=== PATIENT | female | born 1960 ===

== ENCOUNTER 2016-07-12 09:45 | Emergency (ER) | payer MEDICARE, MEDICAID ==
[2016-07-12 09:46] VITALS: BMI 30.2
[2016-07-12 10:46] VITALS: BP 109/78; PULSE 89; RESP 16; TEMP 98; O2SAT 99
--- NOTE | 2016-07-12 11:04 | RAD ---
HISTORY: cough, history of hiv COMPARISON: Images from chest x-ray performed 06/07/11 TECHNIQUE: Chest PA and lateral FINDINGS: Examination limited by habitus. LUNGS: Mild subsegmental bibasilar atelectasis. Please note that chest x-ray has limited sensitivity for the detection of pulmonary masses. PLEURA: No significant pleural effusion identified. No definite pneumothorax . CARDIOVASCULAR: The cardiomediastinal silhouette appears within normal limits of size. OSSEOUS STRUCTURES: Degenerative changes of the spine. VISUALIZED UPPER ABDOMEN: Unremarkable. OTHER FINDINGS: None. IMPRESSION: Mild bibasilar subsegmental atelectasis.
[2016-07-12 11:08] LABS: BASO % 0.4 % (0.0-2.0); EOS # 0.2 K/uL (0.0-0.7); EOS % 2.5 % (0.0-4.0); HEMATOCRIT 37.8 % (34.0-47.0); LYMPH # 2.1 K/uL (1.0-4.3); LYMPH % 21.9 % (20.0-40.0); MEAN CELL VOLUME 96.7 fl (81.0-99.0); MEAN CORPUSCULAR HEMOGLOBIN 32.2 pg (27.0-31.0); MEAN CORPUSCULAR HGB CONC 33.3 g/dL (33.0-37.0); MONO # 0.7 K/uL (0.0-0.8); MONO % 7.3 % (0.0-10.0); NEUT # 6.4 K/uL (1.8-7.0); NEUT % 67.9 % (50.0-75.0); RED CELL DISTRIBUTION WIDTH 14.4 % (11.5-14.5); WHITE BLOOD COUNT 9.4 K/uL (4.8-10.8)
[2016-07-12 11:20] LABS: ALB/GLOB RATIO 0.9 (1.0-2.1); ALKALINE PHOSPHATASE 124 U/L (38-126); ALT/SGPT < 6 U/L (9-52); AST/SGOT 62 U/L (14-36); BILIRUBIN,TOTAL 1.7 mg/dl (0.2-1.3); BLOOD UREA NITROGEN 10 mg/dl (7-17); CARBON DIOXIDE 25 mmol/L (22-30); CHLORIDE 103 mmol/L (98-107); GFR AFRICAN-AMERICAN > 60; GLUCOSE,RANDOM 99 mg/dL (65-105); SODIUM 141 mmol/l (132-148); TOTAL PROTEIN 9.2 G/DL (6.3-8.2)
[2016-07-12 11:25] LABS: POTASSIUM 7.7 MMOL/L (3.6-5.0)
--- NOTE | 2016-07-12 12:37 | ED PDOC ---
HPI: CCC, URI, Sore Throat Time Seen by Provider: 07/12/16 10:16 Chief Complaint (Nursing): Cough, Cold, Congestion Chief Complaint (Provider): Cough for 2 months, chest pain with cough History Per: Patient History/Exam Limitations: no limitations Have you had recent travel within the past 21 days to any of the following countries: [place], [place], [place] or [place]?: No Onset/Duration Of Symptoms: Days Current Symptoms Are (Timing): Still Present Location Of Pain: None Associated Symptoms: Sore Throat, Cough. denies: Fever, Chills, Sputum, Sinus Drainage, Vomiting, Diarrhea Ear Symptoms: Bilateral: None Past Medical History Reviewed: Historical Data, Nursing Documentation, Vital Signs Vital Signs: Last Vital Signs Temp 98 F 07/12/16 10:05 Pulse 89 07/12/16 10:05 Resp 16 07/12/16 10:05 BP 109/78 07/12/16 10:05 Pulse Ox 99 07/12/16 10:05 - Medical History PMH: Anemia, Anxiety, Gastritis, HIV (diagnosed in 2001), Seizures (08/2009) Denies: Chronic Kidney Disease - Family History Family History: States: Unknown Family Hx - Living Arrangements Living Arrangements: With Family - Social History Current smoker - smoking cessation education provided: No - Immunization History Hx Influenza Vaccination: Yes - Home Medications Home Medications: Ambulatory Orders Medication Instructions Recorded Elvitegr/Cobicist/Emtric/Tenof 1 tab PO DAILY 07/15/15 [Stribild] Omeprazole 20 mg PO DAILY 07/15/15 Prednisolone Acetate [Pred Forte] 1 ml OP QID 07/15/15 Zolpidem [Ambien] 10 mg PO DAILY 07/15/15 Naproxen 500 mg PO BID #20 tab 01/29/16 oxyCODONE/Acetaminophen [Percocet 1 ea PO Q6 PRN #15 tab 01/29/16 5/325 mg Tab] Azithromycin [Zithromax] 250 mg PO DAILY #6 tab 07/12/16 - Allergies Allergies/Adverse Reactions: Allergies Allergy/AdvReac Type Severity Reaction Status Date / Time No Known Allergies Allergy Verified 07/12/16 09:59 Review of Systems ROS Statement: Except As Marked, All Systems Reviewed And Found Negative Cardiovascular: Positive for: Chest Pain Respiratory: Positive for: Cough Physical Exam - Reviewed Nursing Documentation Reviewed: Yes Vital Signs Reviewed: Yes - Physical Exam Appears: Positive for: Well, Non-toxic, No Acute Distress Head Exam: Positive for: ATRAUMATIC, NORMAL INSPECTION, NORMOCEPHALIC Skin: Positive for: Normal Color, Warm, DRY Eye Exam: Positive for: Normal appearance ENT: Positive for: Normal ENT Inspection Neck: Positive for: Normal, Painless ROM Cardiovascular/Chest: Positive for: Regular Rate, Rhythm Respiratory: Positive for: CNT, Normal Breath Sounds Gastrointestinal/Abdominal: Positive for: Normal Exam, Bowel Sounds, Soft Back: Positive for: Normal Inspection Extremity: Positive for: Normal ROM Neurologic/Psych: Positive for: Alert, Oriented - Laboratory Results Result Diagrams: 07/12/16 11:00 07/12/16 11:43 - ECG O2 Sat by Pulse Oximetry: 99 Disposition - Clinical Impression Clinical Impression: URI (upper respiratory infection) - Patient ED Disposition Is Patient to be Admitted: No Counseled Patient/Family Regarding: Diagnosis, Need For Followup, Rx Given - Disposition Referrals: [facility] [Outside] Disposition: Routine/Home Disposition Time: 12:35 Condition: GOOD Prescriptions: Azithromycin [Zithromax] 250 mg PO DAILY #6 tab Instructions: Upper Respiratory Infection (ED)
--- NOTE | 2016-07-12 14:54 | CARD ---
APPROVED REPORT EKG Measurement Heart [id number] <Conclusion> Normal sinus rhythm Nonspecific ST and T wave abnormality Abnormal ECG
== END 2016-07-12 12:46 | disposition home or self-care (01) ==
LOC: H.ER 09:45
DX: J06.9 Acute upper respiratory infection, unspecified (principal); Z21 Asymptomatic human immunodeficiency virus [HIV] infection status

== ENCOUNTER 2017-05-04 10:32 | Emergency (ER) | payer MEDICARE, MEDICAID ==
[2017-05-04 10:33] VITALS: BMI 29.2
--- NOTE | 2017-05-04 10:58 | ED PDOC ---
HPI: General Adult Time Seen by Provider: 05/04/17 10:54 Chief Complaint (Provider): cough History Per: Patient Additional Complaint(s): 56-year-old HIV (+) female presents to emergency department with dry cough and body aches for 2 days. Patient denies fever or chills. She denies any known sick contacts. Patient is compliant with HIV meds. PMD: Dr. Sosa Past Medical History Reviewed: Historical Data, Nursing Documentation, Vital Signs Vital Signs: Last Vital Signs Temp 98 F 05/04/17 10:52 Pulse 85 05/04/17 10:52 Resp 18 05/04/17 10:52 BP 118/78 05/04/17 10:52 Pulse Ox 99 05/04/17 11:23 - Medical History PMH: Anemia, Anxiety, Depression, Gastritis, HIV, Chronic Kidney Disease, Seizures (08/2009), TIA - Surgical History Other surgeries: tubal ligation - Family History Family History: States: No Known Family Hx - Living Arrangements Living Arrangements: Other (lives with homemaker) - Social History Current smoker - smoking cessation education provided: No Alcohol: None Drugs: Denies - Immunization History Hx Influenza Vaccination: Yes - Home Medications Home Medications: Ambulatory Orders Medication Instructions Recorded Elviteg/Cassie/Emtric/Tenofo Dis 1 tab PO DAILY 07/15/15 [Stribild] Omeprazole 20 mg PO DAILY 07/15/15 Zolpidem [Ambien] 10 mg PO DAILY 07/15/15 Ferrous Sulfate 325 mg PO DAILY 08/03/16 Albuterol HFA [Ventolin HFA 90 1 puff IH ASDIR #1 unit 05/04/17 mcg/actuation (8 g)] Azithromycin [Zithromax] 250 mg PO DAILY #6 tab 05/04/17 Benzonatate 200 mg PO TID PRN #20 capsule 05/04/17 Oseltamivir Phosphate [Tamiflu] 75 mg PO BID #9 capsule 05/04/17 - Allergies Allergies/Adverse Reactions: Allergies Allergy/AdvReac Type Severity Reaction Status Date / Time No Known Allergies Allergy Verified 08/24/16 06:53 Review of Systems ROS Statement: Except As Marked, All Systems Reviewed And Found Negative Constitutional: Positive for: Other (body aches). Negative for: Fever, Chills Cardiovascular: Negative for: Chest Pain Respiratory: Positive for: Cough Gastrointestinal: Negative for: Vomiting Physical Exam - Reviewed Nursing Documentation Reviewed: Yes Vital Signs Reviewed: Yes - Physical Exam Appears: Positive for: Well, Non-toxic, No Acute Distress Skin: Negative for: Rash ENT: Positive for: Normal ENT Inspection Cardiovascular/Chest: Positive for: Regular Rate, Rhythm Respiratory: Positive for: Normal Breath Sounds Extremity: Positive for: Normal ROM. Negative for: Pedal Edema Neurologic/Psych: Positive for: Alert, Oriented - ECG O2 Sat by Pulse Oximetry: 99 Pulse Ox Interpretation: Normal - Other Rad CXR X-Ray: Interpreted by Me, Viewed By Me X-Ray Interpretation: no acute infiltrate Nebulizer Treatments/Peak Flow - Duonebs Number of Bronchodilator Doses given?: 1 (duoneb) - Pre/Post Peak Flow Pre Treatment Peak Flow: 180 Post treatment Peak Flow: 250 - Steroid Treatment Steroid: Not Clinically Indicated - Clinical Response Clinical Response: Improved Medical Decision Making Medical Decision Makin56 year old with cough Plan: Duoneb x 1 CXR Tamiflu PO PO motrin and tylenol Prescriptions given for Tamiflu, zithromax, Tessalon Perles and Ventolin inhaler. Patient was instructed to take [id number] Tylenol and Motrin for body aches and fever and to follow up with primary doctor in 2-3 days. Disposition - Clinical Impression Clinical Impression: URI (upper respiratory infection), Flu-like symptoms - Patient ED Disposition Is Patient to be Admitted: No Counseled Patient/Family Regarding: Studies Performed, Diagnosis, Need For Followup, Rx Given - Disposition Referrals: Parag Sosa MD [Family Provider] - Disposition: Routine/Home Disposition Time: 12:17 Condition: STABLE Additional Instructions: Take prescription medications as directed. Take [id number] Tylenol and Motrin for body aches and fever as needed. Rest and drink plenty of fluids. Follow up with primary doctor in 2-3 days. Prescriptions: Albuterol HFA [Ventolin HFA 90 mcg/actuation (8 g)] 1 puff IH ASDIR #1 unit Azithromycin [Zithromax] 250 mg PO DAILY #6 tab Benzonatate 200 mg PO TID PRN #20 capsule PRN Reason: Cough Oseltamivir Phosphate [Tamiflu] 75 mg PO BID #9 capsule Instructions: Flu, Adult (DC), Viral Upper Respiratory Infection, Adult (DC)
[2017-05-04 10:59] VITALS: BP 118/78; PULSE 85; RESP 18; TEMP 98; O2SAT 99
[2017-05-04] MEDS ORDERED: Albuterol-Ipratrop 3 mg / 0.5 (3 ml) UD INH STA (11:22)
[2017-05-04] MEDS ORDERED: Albuterol-Ipratrop 3 mg / 0.5 (3 ml) UD ONE (12:07)
--- NOTE | 2017-05-04 12:22 | RAD ---
HISTORY: Cough COMPARISON: 07/12/2016 TECHNIQUE: Chest PA and lateral FINDINGS: LUNGS: No active pulmonary disease. PLEURA: No significant pleural effusion identified. No pneumothorax apparent. CARDIOVASCULAR: No radiographic findings to suggest acute or significant cardiovascular disease. OSSEOUS STRUCTURES: No significant abnormalities. VISUALIZED UPPER ABDOMEN: Normal. OTHER FINDINGS: None. IMPRESSION: No active disease. No significant interval change compared to the prior examination(s).
== END 2017-05-04 12:48 | disposition home or self-care (01) ==
LOC: H.ER 10:32
DX: J06.9 Acute upper respiratory infection, unspecified (principal); J11.1 Influenza due to unidentified influenza virus with other respiratory manifestations; B20 Human immunodeficiency virus [HIV] disease; F32.9 Major depressive disorder, single episode, unspecified; F41.9 Anxiety disorder, unspecified; Z86.73 Personal history of transient ischemic attack (TIA), and cerebral infarction without residual deficits

== ENCOUNTER 2018-05-24 01:39 | Emergency (ER) | payer MEDICARE, MEDICAID ==
[2018-05-24 01:39] VITALS: BMI 29.2
--- NOTE | 2018-05-24 02:51 | ED PDOC ---
HPI: Influenza Time Seen by Provider: 05/24/18 01:53 Chief Complaint: Cough, Cold, Congestion Chief Complaint (Provider): Cough, Cold, Congestion History Per: Patient Exam Limitations: no limitations Onset/Duration Of Symptoms: Days (3) Risk factors for flu complications: Yes: immunosuppression (HIV) Additional complaint(s):: 57 y/o female with history of HIV presents to the ED complaining of cough and sore throat for x3 days. 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 Patient reports that for 3 days she has had dry cough, sinus congestion, and a sense of pressure in her ears. She is uncertain about fever. 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 - Surgical History Surgical History: Endoscopy - Family History Family History: States: Unknown Family Hx - Social History Current smoker - smoking cessation education provided: No Alcohol: None Drugs: Denies - Immunization History Hx Influenza Vaccination: Yes - Home Medications Home Medications: Ambulatory Orders Medication Instructions Recorded Elviteg/Cassie/Emtric/Tenofo Dis 1 tab PO DAILY 07/15/15 [Stribild] Omeprazole 20 mg PO DAILY 07/15/15 Zolpidem [Ambien] 10 mg PO DAILY 07/15/15 Ferrous Sulfate 325 mg PO DAILY 08/03/16 Albuterol HFA [Ventolin HFA 90 1 puff IH ASDIR #1 unit 05/04/17 mcg/actuation (8 g)] Azithromycin [Zithromax] 250 mg PO DAILY #6 tab 05/04/17 Benzonatate 200 mg PO TID PRN #20 capsule 05/04/17 Oseltamivir Phosphate [Tamiflu] 75 mg PO BID #9 capsule 05/04/17 Amoxicillin/Clavulanate [Augmentin 1 tab PO BID #14 tab 05/24/18 875 MG-125 MG] - Allergies Allergies/Adverse Reactions: Allergies Allergy/AdvReac Type Severity Reaction Status Date / Time No Known Allergies Allergy Verified 05/24/18 01:53 Review of Systems ROS Statement: Except As Marked, All Systems Reviewed And Found Negative ENT: Positive for: Ear Pain (pressure), Nose Congestion Respiratory: Positive for: Cough. Negative for: Sputum Physical Exam - Reviewed Nursing Documentation Reviewed: Yes Vital Signs Reviewed: Yes - Physical Exam Appears: Positive for: Well, Non-toxic, No Acute Distress Head Exam: Positive for: ATRAUMATIC, NORMAL INSPECTION, NORMOCEPHALIC Skin: Positive for: Normal Color, Warm, DRY Eye Exam: Positive for: EOMI, Normal appearance, PERRL ENT: Positive for: Sinus Pain/Drainage (sinus tenderness of bilateral frontal and maxillary sinuses), Pharyngeal Erythema Neck: Positive for: Normal, Painless ROM Cardiovascular/Chest: Positive for: Regular Rate, Rhythm. Negative for: Murmur Respiratory: Positive for: Normal Breath Sounds. Negative for: Respiratory Distress Gastrointestinal/Abdominal: Positive for: Normal Exam, Soft. Negative for: Tenderness Back: Positive for: Normal Inspection Extremity: Positive for: Normal ROM. Negative for: Pedal Edema, Deformity Neurologic/Psych: Positive for: Alert, Oriented. Negative for: Motor/Sensory Deficits Medical Decision Making Medical Decision Making: Time: 02:07 Initial Impression: 57 y/o with clinical sinusitis Initial Plan: * Influenza A B * Rapid strep * CXR 03:37 Patient CXR shows no active disease. Flu and Strep both were negative. Patient will be discharged home. Diagnosis is sinusitis. Scribe Attestation: Documented by Narayan Dsouza acting as a scribe for Desmond Shepherd MD. Provider Scribe Attestation: All medical record entries made by the Scribe were at my direction and personally dictated by me. I have reviewed the chart and agree that the record accurately reflects my personal performance of the history, physical exam, medical decision making, and the department course for this patient. I have also personally directed, reviewed, and agree with the discharge instructions and disposition. - ECG O2 Sat by Pulse Oximetry: 100 Disposition - Clinical Impression Clinical Impression: Sinusitis - Patient ED Disposition Is Patient to be Admitted: No - Disposition Disposition: Routine/Home Disposition Time: 03:37 Condition: STABLE Additional Instructions: SUMAN MANCUSO, thank you for letting us take care of you today. Your provider was Desmond Shepherd MD and you were treated for COUGH. The emergency medical care you received today was directed at your acute symptoms. If you were prescribed any medication, please fill it and take as directed. It may take several days for your symptoms to resolve. Return to the Emergency Department if your symptoms worsen, do not improve, or if you have any other problems. Please contact your doctor or call one of the physicians/clinics you have been referred to that are listed on the Patient Visit Information form that is includ ed in your discharge packet. Bring any paperwork you were given at discharge with you along with any medications you are taking to your follow up visit. Our treatment cannot replace ongoing medical care by a primary care provider outside of the emergency department. Thank you for allowing the [facility] team to be part of your care today. If you had an X-Ray or CT scan: A Radiologist will review the ED reading if any change in treatment is needed we will contact you. If you had a blood, urine, or wound culture: It will take several days for the results, if any change in treatment is needed we will contact you. If you had an STI test: It will take 48 hours for the results. Please call after 1 week if you have not heard back. Prescriptions: Amoxicillin/Clavulanate [Augmentin 875 MG-125 MG] 1 tab PO BID #14 tab Instructions: Sinusitis in Adults Forms: [email or web address] ([place]ian)
[2018-05-24 04:08] VITALS: BP 123/72; PULSE 78; RESP 16; TEMP 98
[2018-05-24 05:03] VITALS: O2SAT 100
--- NOTE | 2018-05-24 11:44 | RAD ---
Date of service: 05/24/2018 HISTORY: Cough COMPARISON: 05/04/2017. TECHNIQUE: Chest PA and lateral FINDINGS: LINES AND TUBES: None. LUNG AND PLEURA: The lungs are well inflated and clear. No pleural effusion or pneumothorax. HEART AND MEDIASTINUM: The heart is not enlarged. No aortic atherosclerotic calcifications present. The hilar and mediastinal contours are within normal limits. SKELETAL STRUCTURES: The bony structures are within normal limits for the patient's age. VISUALIZED UPPER ABDOMEN: Normal. OTHER FINDINGS: None. IMPRESSION: No active pulmonary disease.
--- NOTE | 2018-05-28 14:21 | CARD ---
APPROVED REPORT Date of service: 05/24/2018 EKG Measurement Heart [id number] <Conclusion> Normal sinus rhythm Normal ECG
== END 2018-05-24 04:07 | disposition home or self-care (01) ==
LOC: H.ER 01:39
DX: J32.9 Chronic sinusitis, unspecified (principal); B20 Human immunodeficiency virus [HIV] disease; F32.9 Major depressive disorder, single episode, unspecified; F41.9 Anxiety disorder, unspecified; Z86.73 Personal history of transient ischemic attack (TIA), and cerebral infarction without residual deficits